=== PATIENT | male | born 1970 | race Caucasian/White ===

== ENCOUNTER 2022-12-03 11:49 | Outpatient (CLI) | payer MEDICARE, MEDICAID | END 2022-12-03 11:50 | disposition home or self-care (01) | LOC: CT 11:49 | PROVIDERS: ATTEND Physician Assistant Medical | DX: R63.4 Abnormal weight loss (principal); K59.09 Other constipation; R63.0 Anorexia; R19.5 Other fecal abnormalities; D64.9 Anemia, unspecified; F72 Severe intellectual disabilities; Z86.19 Personal history of other infectious and parasitic diseases | CPT/HCPCS: 74177 ==

== ENCOUNTER 2022-12-04 06:41 | Day surgery (SDC) | payer MEDICARE, MEDICAID ==
[2022-12-02 11:03] VITALS: BMI 25.2
[2022-12-04] MEDS ORDERED: Midazolam HCl 2 mg/ml Syrup 5 ml UD Cup ONE (09:12)
[2022-12-04] MEDS ORDERED: Midazolam HCl 2 mg/2 ml Vial ONE (09:13)
[2022-12-04] MEDS ORDERED: PROPOFOL 200 MG/20 ML VIAL ONE (09:28)
== END 2022-12-04 10:30 | disposition home or self-care (01) ==
LOC: SDC 06:41
PROVIDERS: ATTEND Internal Medicine
PROC: 0DJ08ZZ Inspection of Upper Intestinal Tract, Via Natural or Artificial Opening Endoscopic (ICD-10-PCS; principal; 2022-12-04)
DX: R19.5 Other fecal abnormalities (principal); D64.9 Anemia, unspecified; R63.0 Anorexia; K59.09 Other constipation; F72 Severe intellectual disabilities; R63.4 Abnormal weight loss; Z68.25 Body mass index [BMI] 25.0-25.9, adult; Z86.19 Personal history of other infectious and parasitic diseases; Z79.890 Hormone replacement therapy; Z79.899 Other long term (current) drug therapy; Z88.0 Allergy status to penicillin; Z88.1 Allergy status to other antibiotic agents
CPT/HCPCS: J2250; J2704